=== PATIENT | male | born 1970 | race Caucasian/White ===

== ENCOUNTER 2025-08-11 07:11 | Emergency (ER) | payer BC, SELFPAY ==
--- OUTSIDE RECORDS SUMMARY | 2008-08-17 18:00 | XMS_ITS | Continuity of Care Document ---
Author Organization [facility] Address [address] [place] [address] Phone Care Team Providers Care Commercial Lines Insurance Agent Name Role Phone Abelardo Neal MD Unavailable Unavailable Procedures Procedure Date Medical Testimony Deposition Work/medical disability examination [place]elle Advance Directives Directive Yes / No Effective Date File Name No Information Encounters Encounter Description Practice Location Reason(s) For Visit Diagnoses Date Provider Providers Copied on Encounter [facility], [address], [id number], [phone] [facility] No Information 8 8 Ángel Zhou. [address] [facility], [facility] [address], [place], [place], [id number] , [place]. tel: [phone] Work/medical disability examination [facility], [address] [place] [address], [id number], tel:[phone] [facility] No Information 9 6 Ángel Zhou. [address] [facility], [facility] [address], [place], [id number] , [place]. tel: [phone] Family History Family Member Type Diagnosis Age At Onset No Information Payers Payer name Insurance type Covered green party ID Authoriza tion(s) No Information Social History Type Description Quantity Date Captured Comments Sex Male Smoking Status No Information Chief Complaint And Reason For Visit No Information Reason For Referral Reason For Referral No Information History Of Present Illness Encounter Date Complaint History Of Prese nt Illness No Information Functional Status Date Functional Assessmen t No Information Instructions Date Instruction Additional Infor mation No Information Assessments Type Assessment Date No Information Patient Care Teams Name Effective Dates (start - stop) Status Members No Information
--- NOTE | ~2025-08-11 | XR_ITS ---
EXAMINATION: XR heel LT min 2V DATE: 08/11/2025 07:41 INDICATION: Pain TECHNIQUE: Left calcaneus x-rays were obtained. COMPARISON: None. FINDINGS: No fracture subluxation or dislocation. No aggressive acute bony or soft tissue process seen. Small enthesophyte at the Achilles tendon insertion. IMPRESSION: 1. Small enthesophyte at the Achilles tendon insertion. Consider correlation with Achilles/ankle protocol MRI for optimal evaluation. Reviewed, dictated and finalized at location A. D GUIDANCE COUNSELOR IMPRESSION: 1. Small enthesophyte at the Achilles tendon insertion. Consider correlation [facility] Achilles/ankle protocol MRI for optimal evaluation.
[2025-08-11 07:15] VITALS: BP 132/91; PULSE 71; RESP 14; TEMP 36.4; O2SAT 100
--- NOTE | 2025-08-11 08:07 | ED_ITS ---
HPI - Extremity Injury (Lower) General Chief Complaint: Extremity Injury, Lower Stated Complaint: left foot pain, non-weigh bearing x3days Time Seen by Provider: 08/11/25 07:14 History of Present Illness HPI Narrative: Patient is a 55-year-old male who presents ER with pain to left foot. He rolled his foot while doing some concrete work 3 days ago. He has been continuing bear weight but woke up today and had pain to the point that he cannot bear weight. Is located over the posterior aspect of the heel at the base of the Achilles tendon. He has pain with plantar flexion. No numbness or tingling to the foot. No swelling. Related Data Allergies Allergy/AdvReac Type Severity Reaction Status Date / Time Penicillins Allergy Hives Verified 08/11/25 07:17 Review of Systems Constitutional: Constitutional: Reports no additional constitutional complaints Musculoskeletal: Musculoskeletal: Reports no additional musculoskeletal complaints Integumentary/Breasts: Skin/Breast: Reports system reviewed and no additional complaints, except as docu Neurologic: Reports system reviewed and no additional complaints, except as documented PMFSH Past Medical History Medical History (Updated 08/11/25 @ 08:49 by Lamont Burk MD) Healthy adult male Exam Narrative: GENERAL: Well-appearing, well-nourished, and in no acute distress. HEAD: Normocephalic, atraumatic. ENT: Mucous membranes moist. EXTREMITIES: Normal range of motion. No edema. TTP over the Achilles at the insertion site of the calcaneus on the left side. No plan pain over plantar aspect of the calcaneus. SKIN: Warm, dry, no rash. NEURO: Alert and oriented x3. PSYCH: Normal mood and affect. Course Course Emergency Course: Discussed with Dr. Cobb with Orthopedic surgery. Patient will be placed in short leg posterior splint for protection and be given crutches with toe-touch weight-bearing. Anti-inflammatories for home and follow-up with ortho outpatient. Vital Signs Vital signs: Vital Signs Temperature 97.6 F 08/11/25 07:15 Pulse Rate 71 08/11/25 07:15 Respiratory Rate 14 08/11/25 07:15 Blood Pressure 132/91 H 08/11/25 07:15 Pulse Oximetry 100 08/11/25 07:15 Oxygen Delivery Room Air 08/11/25 07:15 Temperature 97.6 F 08/11/25 07:15 Pulse Rate 71 08/11/25 07:15 Respiratory Rate 14 08/11/25 07:15 Blood Pressure 132/91 H 08/11/25 07:15 Pulse Oximetry 100 08/11/25 07:15 Oxygen Delivery Room Air 08/11/25 07:15 Procedures Orthopedic Splinting/Casting Injury #1: Splinting/Casting Date: 08/11/25 Splinting/Casting Time: 08:50 Side: left Lower Extremity Injury Location: ankle Lower Extremity Immobilizer: posterior splint Splint: customized in ED Pre-Procedure Neuro Vascular Exam: normal Post-Procedure Neuro Vascular Exam: normal Other Orthopedic Equipment: crutches MDM - Extremity Injury (Lower) Differential Diagnosis Differential diagnosis: Likely ankle sprain and strain, ankle fracture and other (Achilles rupture, Achilles tendinitis, calcaneal fracture.) Imaging Data Radiologist's impression: ITS Impressions Heel X-Ray 08/11/25 07:54 IMPRESSION: 1. Small enthesophyte at the Achilles tendon insertion. Consider correlation with Achilles/ankle protocol MRI for optimal evaluation. Discharge Plan Discharge Clinical Impression: Achilles tendinitis Patient Disposition: Home Condition: Stable Instructions: Achilles Tendinitis (ED) Additional Instructions: Take anti-inflammatories and use your crutches until cleared by orthopedic surgery. You should call to schedule prompt follow-up. Return the ER if her leg is swollen, you have chest pain with shortness of breath, or you have new injury. Patient Language: Persian Prescriptions: New naproxen 375 mg tablet 375 mg PO BID Qty: 14 0RF Follow-up/Referrals: Iam Cobb MD [Physician, Orthopedics] - 1 Week
--- OUTSIDE RECORDS SUMMARY | 2025-08-11 08:12 | XMS_ITS | Clinical Summary ---
Author Organization [address] Address [address] [place] [id number] Care Team Providers Care Route Agent Name Role Phone AmnaLizy hutson Susanne PASCUAL Primary Care Provider [phone] Allergies Active Allergy Reactions Criticality Noted Date Comments Penicillins Rash,Urticaria Medium 05/09/2011 Medications No known medications Active Problems Problem Noted Date Diagnosed Date BMI 40.0-44.9, adult 06/29/2024 Pain in joint of right shoulder 12/10/2022 Proteinuria 12/10/2022 Periodic limb movement 12/10/2022 BMI 37.0-37.9, adult 12/10/2022 Nonsmoker 12/10/2022 Neck pain 11/01/2020 Hypersomnia with sleep apnea 08/11/2017 Nonalcoholic fatty liver disease 10/10/2014 Overview (12/10/2022): Normal copper 09/2014 Normal iron, hepatitis ABC 06/[address] scan Anxiety 06/24/2012 Overview (12/10/2022): effexor worked but wasn't covered by insurance Hyperlipidemia 06/24/2012 Overview (12/10/2022): According to the Pooled Cohort Risk calculator, the patient's 10 year risk of an atherosclerotic cardiovascular event is 3 % as of 10/10/2014. Obstructive sleep apnea 06/24/2012 Thoracic radiculopathy 06/24/2012 Overview (12/10/2022): T9-T10 L MRI 03/02: T9-T10 lesion lies to the left of midline and is putting slight pressure on the dural sac and the nerve root sleeve. Family History Medical History Relation Name Comments Cancer Father Emphysema Father Lung disease Father Heart failure Mother Relation Name Status Comments Father Mother Social History Tobacco Use Types Packs/Day Years Used Date Smoking Tobacco: Never Smokeless Tobacco: Never Tobacco Cessation:Counseling Given: Not Answered AUDIT-C Answer Date Recorded Q1: How often do you have a drink containing alc ohol? 2-3 times a week 12/10/2022 Q2: How many drinks containi ng alcohol do you have on a typical day when you are drinking? 3 or 4 12/10/2022 Q3: How often do you have si x or more drinks on one occasion? Never 12/10/2022 Sex and Gender Information Value Date Recorded Sex Assigned at Not on file Legal Sex Male 7:00 PM PLASTIC FIXTURE BUILDER Gender Identity Not on file Sexual Orientation Not on file Last Filed Vital Signs Vital Sign Reading Time Taken Comments Blood Pressure 120/78 12/07/2024 2:38 PM CDT Pulse 78 12/07/2024 2:38 PM CDT Temperature 36.6 C (97.8 F) 12/07/2024 2:38 PM CDT Respiratory Rate 16 12/07/2024 2:38 PM CDT Oxygen Saturation 98% 12/07/2024 2:38 PM CDT Inhaled Oxygen Concentration - - Weight 112 kg (247 lb) 12/07/2024 2:38 PM CDT Height 172.7 cm (5' 8) 12/07/2024 2:38 PM CDT Body Mass Index 37.56 12/07/2024 2:38 PM CDT Plan of Treatment Health Maintenance Due Date Last Done Comments Colon Cancer Screening-Colonoscopy 1972 Depression Screening 1972 Hepatitis C Screening 1972 Prostate Cancer Screening-PSA 1972 Regular Well Visit/Exam 18-64 1990 Pneumococcal vaccine <65 (1 of 2 - PCV) 1991 Zoster Vaccine (1 of 2) 2022 DTaP/Tdap/Td Vaccine (2 - Td or Tdap) 06/24/2022 06/24/2012 Influenza Vaccine (#1) 2025 4, 08/11/2017, 10/10/2014, Additional history exists Insurance [facility]OS MULTIPLAN ANTH ACCESS CHOICE Member Subscriber Plan / Payer (Ef fective 2023-Present) Name:Fritz Hawkins Relation to Subscriber:Spouse Name:TRIXIE HAWKINS Date of :1971 (Home) Address: [address] [place] [id number] Payer ID:[id number] (NAIC) Type:BC ALLIANCE Address: [facility] [id number] [place] [phone] Care Teams Route Agent Relationship Specialty Start Date End Date Lizy Woo DO PCP - General 11/29/19
--- OUTSIDE RECORDS SUMMARY | 2025-08-11 08:12 | XMS_ITS | Clinical Summary ---
Author Organization [facility] [employer] Address [address] [place] [address] Care Team Providers Care Lamination Spinner Name Role Phone Andriy Montano MD Unavailable [phone] Source Comments [facility],non-owned Affiliates and Associated Physician Practices is amultiple site organization consisting of ambulatory clinics and hospital sitesin [place], [place], [place] and [place]. This disclosure is being madepursuant to the Care Everywhere program and may not contain all information available regarding this patient. Last updated 18.[facility] [employer] Allergies Active Allergy Reactions Criticality Noted Date Comments Penicillins Urticaria 05/09/2011 Medications * Be aware that medications may not be up to date on this document. Alwaysverify current medications with the patient. citalopram (CELEXA) 20 MG tablet Take 1 Tab by mouth once daily. 90 Tab 1 02/20/2015 Active Active Problems Problem Noted Date Diagnosed Date Hypersomnia with sleep apnea 08/11/2017 Nonalcoholic fatty liver disease 10/10/2014 Overview (10/17/2014): Normal copper 09/2014 Normal iron, hepatitis ABC 06/[address] scan Thoracic radiculopathy 06/24/2012 Overview (06/24/2012): T9-T10 L MRI 03/02: T9-T10 lesion lies to the left of midline and is putting slight pressure on the dural sac and the nerve root sleeve. Morbid obesity with BMI of 40.0-44.9, adult 12/2011 SOTO treated with BiPAP 06/24/2012 Anxiety 06/24/2012 Overview (06/24/2012): effexor worked but wasn't covered by insurance Hyperlipidemia LDL goal <160 06/24/2012 Overview (10/10/2014): According to the Pooled Cohort Risk calculator, the patient's 10 year risk of an atherosclerotic cardiovascular event is 3 % as of 10/10/2014. History of colon polyps 05/09/2011 Immunizations Immunization Administration Dates Next Due INFLUENZA VACCINE, TRIV. (AF LURIA, FLUZONE TRIVALENT; 6MO+) (IIV3) 06/24/2012 FLU VACCINE TRI IIV3 SPLIT PF IM (FLUVIRIN) 06/22 HEP B VACCINE ADOL/ADULT 2 DOSE 03/21/2012,10/22,09/21/2011 INFLUENZA VACCINE, QUADR. (F LUZONE; FLULAVAL; FLUARIX; AFLURIA QUADRIVALENT; 6MO+), 0.5 ML (IIV4) 08/11/2017,10/10/2014 TDAP (7yrs+) 06/24/2012 Family History Medical History Relation Name Comments CAD (Coronary Artery Disease) Mother Hypertension Mother Relation Name Status Comments Mother Social History Tobacco Use Types Packs/Day Years Used Date Smoking Tobacco: Former Cigarettes 0 Q uit: 05/09/1992 Smokeless Tobacco: Former Quit: 09/21/1991 Tobacco Cessation:Counseling Given: Yes Alcohol Use Standard Drinks/Week Comments Yes 1.7 (1 standard drink = 0.6 oz p ure alcohol) Sex and Gender Information Value Date Recorded Sex Assigned at Not on file Legal Sex Male 1:35 PM HOG RINGER Gender Identity Male 08/11/2017 9:41 AM HOG RINGER Sexual Orientation Not on file 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 Start Date Job End 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 Not on file Not on file Not on file [employer]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 Not on file Not on file 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 Not on file Not on file No t on file Last Filed Vital Signs Vital Sign Reading Time Taken Comments Blood Pressure 128/86 08/11/2017 12:57 PM HOG RINGER Pulse 91 08/11/2017 12:57 PM HOG RINGER Temperature 36.4 C (97.5 F) 08/11/2017 11:01 AM HOG RINGER Respiratory Rate 14 02/20/2015 9:37 AM CDT Oxygen Saturation 98% 08/11/2017 12:57 PM HOG RINGER Inhaled Oxygen Concentration - - Weight 122.5 kg (270 lb) 08/11/2017 12:57 PM HOG RINGER Height 170 cm (5' 6.93) 08/11/2017 12:57 PM HOG RINGER Body Mass Index 42.38 08/11/2017 12:57 PM HOG RINGER Plan of Treatment Health Maintenance Due Date Last Done Comments COLOGUARD (AGES 45-75) - COLON CA SCREENING 1972 CT COLONOGRAPHY - COLON CA SCREENING 1972 FIT - COLON CA SCREENING 1972 FLEX SIG - COLON CA SCREENING 1972 HIV SCREENING 1987 COLON MONITORING 05/14/2016 05/14/2011 Colorectal Cancer Screening 05/14/2016 SCREENING FOR DIABETES 08/11/2020 7, 10/04/2014, 07/15/2013, Additional history exists COLONOSCOPY - COLON CA SCREENING 05/14/2021 05/14/2011 PNEUMOCOCCAL VACCINE 50+ (1 of 1 - PCV) 2022 ZOSTER VACCINE (1 of 2) 2022 DTAP/TDAP/TD VACCINES (2 - Td or Tdap) 06/24/2022 06/24/2012 LIPID TESTING 08/11/2022 08/11/2017, 09/21, 07/15/2013, Additional history exists DEPRESSION SCREENING 09/21/2024 COVID-19 VACCINE (1 - 2024- season) 2025 INFLUENZA VACCINE (#1) 2025 7, 10/10/2014, 07/14/2013, Additional history exists HEPATITIS B VACCINE Completed 03/21/2012, 10/22/2011, 09/21/2011 HEPATITIS C SCREENING Completed 07/15/2013 HIB VACCINE Aged Out No longer eligi ble based on patient's age to complete this topic HPV VACCINE Aged Out No longer eligi ble based on patient's age to complete this topic MENINGOCOCCAL (Group B) VACCINE SHARED DECISION-MAKING Aged Out No longer eligible based on patient's age to complete this topic MENINGOCOCCAL GROUPS A/C/Y/W VACCINE Aged Out No longer eligible based on patient's age to complete this topic Procedures Procedure Name Priority Date/Time Associated Diagnosis Comments COMPREHENSIVE METABOLIC PANEL Routine 08/11/2017 11:55 AM HOG RINGER Pulmonary nodule Need for influenza vaccination Lipid screening Elevated blood pressure reading without diagnosis of hypertension SOTO (obstructive sleep apnea) Anxiety History of colon polyps LIPID PROFILE Routine 08/11/2017 11:55 AM HOG RINGER Pulmonary nodule Need for influenza vaccination Lipid screening Elevated blood pressure reading without diagnosis of hypertension SOTO (obstructive sleep apnea) Anxiety History of colon polyps HEPATITIS SCREEN ACUTE Routine 3 10:45 AM CDT Influenza vaccine needed SOTO (obstructive sleep apnea) Solitary pulmonary nodule Hyperlipidemia LDL goal <160 ENDOSCOPY, COLON, DIAGNOSTIC Routine 05/14/2011 11:02 AM CDT from Last 3 Months or Most Recently Relevant to Health Maintenance Results * (ABNORMAL) COMPREHENSIVE METABOLIC PANEL (08/11/2017 11:55 AM HOG RINGER) Glucose 87 65 - 99 mg/dL [facility] ACCOUNT BILL BUN 18 6 - 24 mg/dL [facility] ACCOUNT BILL Creatinine 0.96 0.76 - 1.27 mg/dL [facility] ACCOUNT BILL eGFR by MDRD 95 >59 mL/min/1.7 3 [facility] ACCOUNT BILL eGFR by MDRD 110 >59 mL/min/1.7 3 [facility] ACCOUNT BILL BUN/Creatinine Ratio 19 9 - 20 [facility] ACCOUNT BILL Sodium 145(H) 134 - 144 mmol/L [facility] ACCOUNT BILL Potassium 4.5 3.5 - 5.2 mmol/L [facility] ACCOUNT BILL Chloride 102 96 - 106 mmol/L [facility] ACCOUNT BILL CO2 24 18 - 29 mmol/L [facility] ACCOUNT BILL Calcium 9.5 8.7 - 10.2 mg/dL [facility] ACCOUNT BILL Protein Total 7.7 6.0 - 8.5 g/dL [facility] ACCOUNT BILL Albumin 4.9 3.5 - 5.5 g/dL [facility] ACCOUNT BILL Globulin Total 2.8 1.5 - 4.5 g/dL [facility] ACCOUNT BILL Albumin/Globulin Ratio 1.8 1.2 - 2.2 [facility] ACCOUNT BILL Bilirubin Total 0.9 0.0 - 1.2 mg/dL [facility] ACCOUNT BILL Alkaline Phosphatase 91 39 - 117 IU/L [facility] ACCOUNT BILL AST 43(H) 0 - 40 IU/L [facility] ACCOUNT BILL ALT 53(H) 0 - 44 IU/L [facility] ACCOUNT BILL Comment:FASTING Blood BLOOD SPECIMEN / Unknown 08/11/2017 11:55 AM HOG RINGER 08/11/2017 Narrative Resulting Agency Comment [facility] [address] [facility] [id number] Alexander Venegas MD LAB - CHEMISTRY ORDERABLES Fi nal Result Performing Organization Address [facility] de Phone Number [facility] ACCOUNT BILL [address] [place] [address] * (ABNORMAL) LIPID PROFILE (08/11/2017 11:55 AM HOG RINGER) Cholesterol 191 100 - 199 mg/dL [facility] ACCOUNT BILL Triglycerides 201(H) 0 - 149 mg/dL [facility] ACCOUNT BILL HDL Cholesterol 36(L) >39 mg/dL [facility] ACCOUNT BILL VLDL Calculated 40 5 - 40 mg/dL [facility] ACCOUNT BILL LDL Calculated 115(H) 0 - 99 mg/dL [facility] ACCOUNT BILL Comment NOT NEEDED [facility] ACCOUNT BILL Comment: FASTING Ancillary determined the test is not needed Blood BLOOD SPECIMEN / Unknown 08/11/2017 11:55 AM HOG RINGER 08/11/2017 Narrative Resulting Agency Comment [facility] [address] [facility] [id number] Alexander Venegas MD LAB - CHEMISTRY ORDERABLES Fi nal Result Performing Organization Address [facility] de Phone Number [facility] ACCOUNT BILL [address] [place] [address] * HEPATITIS SCREEN ACUTE (07/15/2013 10:45 AM CDT) Hepatitis A Virus Antibody IgM Negative Negative [facility] ACCOUNT BILL Hepatitis B Virus Surface Antigen Negative Negative [facility] ACCOUNT BILL Hepatitis B Core Virus Antibody IgM Negative Negative [facility] ACCOUNT BILL Hepatitis C Antibody 0.8 0.0 - 0.9 s/co ratio [facility] ACCOUNT BILL Comment: Negative: < 0.8 Indeterminate 0.8 - 0.9 Positive: > 0.9 . In order to reduce the incidence of a false positive result, the CDC recommends that all s/co ratios between 1.0 and 10.9 be confirmed by a more specific supplemental or PCR testing. [facility] Ab w/Reflex to Verification test #[id number]. Blood specimen (specimen) BLOOD SPECIMEN / Unknown 07/15/2013 10:45 AM CDT 07/15/2013 3:41 PM CDT Narrative Resulting Agency Comment [facility] [address] [facility] [id number] us Alexander Venegas MD LAB - CHEMISTRY ORDERABLES Fi nal Result Performing Organization Address [facility] de Phone Number [facility] ACCOUNT BILL [address] [place] [address] * ENDOSCOPY, COLON, DIAGNOSTIC (05/14/2011 11:02 AM CDT) Narrative Transcriptions Jose Keating MD - 05/14/2011 11:02 AM CDT us Jose Keating MD GI PROCEDURE ORDERABLES Final Re sult Performing Organization Address [facility] de Phone [place] [address] from Last 3 Months or Most Recently Relevant to Health Maintenance Insurance [facility] Advance Directives * FULL RESUSCITATION (Latest Code Status on File) Date Activated Date Inactivated Comments 05/10/2011 3:01 AM 05/11/2011 2:15 AM Care Teams Lamination Spinner Relationship Specialty Start Date End Date Andriy Montano MD [address] [address] Internal Medicine Sleep Medicine 08/11/17
--- OUTSIDE RECORDS SUMMARY | 2025-08-11 08:12 | XMS_ITS | Clinical Summary ---
Author Organization [facility] Address [facility] [place] [address] Care Team Providers Care Property Inspector Name Role Phone Sohan Pizano MD Unavailable Estefani Riley DO Primary Care Provider Allergies Active Allergy Reactions Criticality Noted Date Comments Penicillins Rash Low 08/09/2018 Medications citalopram 10 MG tablet Take 10 mg by mouth daily. 0 07/10/2018 Active Active Problems Problem Noted Date Diagnosed Date Family history of heart disease Hyperlipidemia Encounters Date Type Department Care Team Description 07/11/2025 3:10 PM CDT - 07/11/2025 11:59 PM CDT Hospital Encounter [facility] [place] [address] Estefani Riley, Discharge Disposition: Home or Self Care (Routine Discharge) 07/11/2025 Travel from Last 3 Months Family History Medical History Relation Comments Prostate Cancer Father Depression Mother Hypertension Mother Obesity Mother cad Mother Hypertension Sister Relation Status Comments Father Alive Mother Alive Sister Social History Tobacco Use Types Packs/Day Years Used Date Smoking Tobacco: Former Cigarettes Q uit: 07/1994 Smokeless Tobacco: Never Alcohol Use Standard Drinks/Week Comments Yes 0 (1 standard drink = 0.6 oz pur e alcohol) AUDIT-C Answer Date Recorded Frequency of Alcohol Consumption 2-3 times a wee k 08/09/2018 Average Number of Drinks Not on file 018 Frequency of Binge Drinking Not on file 07/22 Sex and Gender Information Value Date Recorded Sex Assigned at Male 07/11/2025 3:09 PM CDT Legal Sex Male 7:14 PM CDT Gender Identity Not on file Sexual Orientation Not on file 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 Start Date Job End Date [employer] Not on file Not on file No t on file Last Filed Vital Signs Vital Sign Reading Time Taken Comments Blood Pressure 132/84 08/09/2018 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 Pulse 66 08/09/2018 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 Temperature - - Respiratory Rate - - Oxygen Saturation - - Inhaled Oxygen Concentration - - Weight 125.6 kg (277 lb) 08/09/2018 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 Height 172.7 cm (5' 8) 08/09/2018 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 Body Mass Index 42.12 08/09/2018 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 Plan of Treatment Health Maintenance Due Date Last Done Comments Colorectal Cancer Screening Colonoscopy (10 Years) 1972 Annual Physical 1975 Hepatitis B Vaccines (1 of 3 - 19+ 3-dose series) 1991 Pneumococcal Vaccine: 50+ Years (1 of 1 - PCV) 2022 Zoster Vaccines (1 of 2) 2022 DTaP, Tdap and Td Vaccines (2 - Td or Tdap) 06/24/2022 06/24/2012 COVID-19 Vaccine (1 - 2024- season) 2025 Influenza Adult (#1) 2025 06/15/2024, 08/11/2017, 10/10/2014, Additional history exists Hepatitis C Completed 07/15/2013 Hepatitis A Vaccines Aged Out No long er eligible based on patient's age to complete this topic Meningococcal B Vaccine Aged Out No l onger eligible based on patient's age to complete this topic Meningococcal Vaccine Aged Out No kalyani iliana eligible based on patient's age to complete this topic RSV Immunizations Under 20 Months Aged Out No longer eligible based on patient's age to complete this topic Procedures Procedure Name Priority Date/Time Associated Diagnosis Comments XR SHOULDER LT 3V Routine 07/11/2025 3:3 1 PM CDT Pain XR LUMB SPINE 3V Routine 07/11/2025 3:31 PM CDT Pain from Last 3 Months Results * XR SHOULDER LT 3V (07/11/2025 3:31 PM CDT) Anatomical Region Laterality Modality Shoulder Radiographic Camila ging 07/11/2025 3:47 PM CDT Impressions 07/11/2025 3:47 PM CDT IMPRESSION: No acute findings Ordered By: ESTEFANI RILEY Interpreted By: Maximo Drummond MD, 07/11/2025 3:47 PM Narrative 07/11/2025 3:47 PM CDT [place] [id number] 3 VIEWS OF THE LEFT SHOULDER CLINICAL HISTORY: Pain COMPARISON: None 3 views of the left shoulder demonstrate the bony elements to be intact. There is no evidence of fracture or dislocation. The surrounding soft tissues appear normal. Procedure Note Maximo Drummond MD - 07/11/2025 [place] [address] 3 VIEWS OF THE LEFT SHOULDER CLINICAL HISTORY: Pain COMPARISON: None 3 views of the left shoulder demonstrate the bony elements to be intact.There is no evidence of fracture or dislocation. The surrounding softtissues appear normal. IMPRESSION: No acute findings Ordered By: ESTEFANI RILEY Interpreted By: Maximo Drummond MD, 07/11/2025 3:47 PM us Estefani Riley DO GENERAL IMAGING Final Result * XR LUMB SPINE 3V (07/11/2025 3:31 PM CDT) Anatomical Region Laterality Modality Spine Radiographic Camila ging 07/11/2025 3:47 PM CDT Impressions 07/11/2025 3:48 PM CDT IMPRESSION: No acute findings Ordered By: ESTEFANI RILEY Interpreted By: Maximo Drummond MD, 07/11/2025 3:47 PM Narrative 07/11/2025 3:48 PM CDT [place] [address] 3 VIEWS OF THE LUMBAR SPINE Clinical History: Low back pain Comparison: None 3 views of the lumbar spine demonstrate no evidence of fracture. Overall alignment is within normal limits.. The vertebral body heights are symmetric and within normal limits throughout. The intervertebral disc heights demonstrate symmetry with a normal overall appearance. The facets are normally aligned. The spinous processes and transverse processes appear normal. Small anterior vertebral body marginal osteophytes are noted arising from the L3 and superior endplate of L4 levels Procedure Note Maximo Drummond MD - 07/11/2025 [place] [address] 3 VIEWS OF THE LUMBAR SPINE Clinical History: Low back pain Comparison: None 3 views of the lumbar spine demonstrate no evidence of fracture. Overallalignment is within normal limits.. The vertebral body heights aresymmetric and within normal limits throughout. The intervertebral discheights demonstrate symmetry with a normal overall appearance. The facetsare normally aligned. The spinous processes and transverse processesappear normal. Small anterior vertebral body marginal osteophytes arenoted arising from the L3 and superior endplate of L4 levels IMPRESSION: No acute findings Ordered By: ESTEFANI RILEY Interpreted By: Maximo Drummond MD, 07/11/2025 3:47 PM Estefani Riley DO GENERAL IMAGING Final Result from Last 3 Months Insurance [facility] BL[facility] [employer]IELD [facility] Care Teams Property Inspector Relationship Specialty Start Date End Date Estefani Riley DO [address] [place] [address] [phone] PCP - General INTERNAL MEDICINE 07/22/18 Sohan Pizano MD [facility]. [facility] [address] [place] [address] [employer] INTERVENTIONAL CARDIOLOGY 07/28/18
[2025-08-11 09:43] VITALS: BP 124/76; PULSE 78; RESP 18; O2SAT 99
== END 2025-08-11 09:44 | disposition home or self-care (01) ==
PROVIDERS: Emergency Provider Emergency Medicine; PCP Internal Medicine
DX: M76.62 Achilles tendinitis, left leg (principal)
CPT/HCPCS: 29515; 73650; 99283